=== PATIENT | female | born 1995 | race Two or more races ===

== ENCOUNTER 2018-11-13 13:27 | Emergency (ER) | payer MEDICAID ==
[~2018-11-13] VITALS: Ht 167.6 cm; Wt 65.8 kg
[~2018-11-13 13:27] MED LIST: ARIP1TAB5; DIVA1TAB58
[2018-11-13] MEDS ORDERED: cefTRIAXone W LIDOCAINE 1 GM IM IM ONE (14:30)
[2018-11-13 15:57] VITALS: BP 104/65
== END 2018-11-13 16:09 | disposition home or self-care (01) ==
LOC: ER 13:27 → EDBD 13:27 → EDUNIT# 13:27 → EEVIPCON 13:27 → ER 16:09
DX: F41.9 Anxiety disorder, unspecified (principal); K12.0 Recurrent oral aphthae; F20.9 Schizophrenia, unspecified; F12.90 Cannabis use, unspecified, uncomplicated; F15.90 Other stimulant use, unspecified, uncomplicated; Z79.899 Other long term (current) drug therapy
CPT/HCPCS: 96372; 99284; J0696